=== PATIENT | female | born 1940 | race African-American/Black ===

== ENCOUNTER → 2016-04-10 | Outpatient (CLI) | payer MEDICARE, MEDICAID ==
--- NOTE | 2016-04-10 13:21 | WOMENS IMAGING REPORT ---
EXAM DESCRIPTION: 3D SCREENING MAMMO BILAT COMPLETED DATE/TIME: 04/10/2016 10:47 am REASON FOR STUDY: Z12.31, ROUTINE SCREENING MAMMO Z12.31 ENCNTR SCREEN MAMMOGRAM FOR MALIGNANT NEOP LASM OF LUIS MIGUEL COMPARISON: 08/20/2008 TECHNIQUE: Standard craniocaudal and mediolateral oblique views of each breast recorded using digita l acquisition and breast tomosynthesis. LIMITATIONS: None. FINDINGS: Findings present which are benign by mammographic criteria. No suspicious masses, calcifi cations or architectural distortion. Read with the assistance of CAD. .[facility] - R2 Cenova Version 1.3 .[facility] - R2 Cenova Version 1.3 .[facility] - R2 Cenova Version 2.4 .[facility] - R2 Cenova Version 2.4 .[facility] - R2 Voice Network Engineer Version 9.2 Benign mammographic findings may include one or more of the following: Smooth masses, popcorn/rim/co arse calcifications, asymmetries, post-procedure changes, and lesions with long-standing stability. BREAST DENSITY: b. There are scattered areas of fibroglandular density. BIRAD: 2 BENIGN FINDING(S) RECOMMENDATION: RECOMMENDATION: ROUTINE SCREENING COMMENT: PATIENT NOTIFIED BY LETTER The [employer] recommends an annual screening mammogram for women aged 40 years or over. Each patient will receive a reminder prior to the anniversary date of her mammogram. The [employer] (ACR) has developed recommendations for screening MRI of the breast s in certain patient populations, to be used in conjunction with mammography. Breast MRI surveillanc e may be appropriate for women with more than 20% lifetime risk of developing breast cancer as deter mined by genetic testing, significant family history of the disease, or history of mantle radiation f or Hodgkins Disease. ACR Practice Guidelines 2008. DBT Technology DBT is a type of tomographic mammography. With conventional mammography, overlapping breast tissue ma y make lesions difficult to detect, even with good compression. DBT uses an x-ray tube that rotates a round the breast, taking images at different angles. These images are then combined to create thin sl ices of the breast that the radiologist can view as a 3D reconstruction. The [employer] unit can perform full-field digital mammograms (2D imaging); or DBT (3D imaging); or both, in a combination mode that quickly performs both the mammogram and the tomosynthesis scan while the breast is still compressed. PQRS 6045F: Fluoroscopic imaging is not utilized for breast tomosynthesis. TECHNICAL DOCUMENTATION: FINDING NUMBER: (1) ASSESSMENT: (1) JOB ID: [id number] [employer]- All Rights Reserved
== END ==
LOC: WI 10:06
PROVIDERS: ATTEND Urology
DX: Z12.31 Encounter for screening mammogram for malignant neoplasm of breast (principal)
CPT/HCPCS: 77063; G0202; 77067

== ENCOUNTER → 2016-05-15 | Outpatient (CLI) | payer MEDICARE, MEDICAID ==
--- NOTE | 2016-05-16 11:48 | XCELERA REPORT ---
[address] [address] Lower Extremity Arterial Evaluation Name: GIULIA CUEVAS Age: 75 yrs Gender: Female : 1940 Patient Status: Outpatient Patient Location: Study Date: 05/15/2016 01:56 PM Procedure: A color flow and duplex scan of the lower extremity arteries was performed bilaterally with velocity and waveform anaylsis. Ankle brachial indicies performed. 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 Stenosis in the Femoral with Biphasic waveform. Monophasic in the Popliteal and infrageniculate vessels. Severely reduced velocity and waveform distally The ankle-brachial index is 0.5. 20-49 % stenosis is noted at the Femoral artery. With sequential disease. Left Side Arterial Evaluation Normal velocity, waveform and triphasic flow are present, from the Common Femoral artery to the Popliteal artery. then occlusion with monophasic reconstitution, reduced velocity, in the Anterior Tibial artery, no flow in the Posterior Tibial artery distally. The ankle-brachial index is 0.51. Occlusion as noted at the infrageniculate vessels. Interpretation Summary Severe hemodynamically significant lesions in the bilateral lower extremities, on duplex imaging, at rest. : HANH CORNEJO > Popeye Wright
== END ==
LOC: SP 12:45
PROVIDERS: ATTEND Student in an Organized Health Care Education/Training Program
DX: I82.403 Acute embolism and thrombosis of unspecified deep veins of lower extremity, bilateral (principal)
CPT/HCPCS: 93925; 93970

== ENCOUNTER 2016-10-11 12:16 | Emergency (ER) | payer MEDICARE, MEDICAID ==
--- NOTE | 2016-10-11 13:29 | ER Document Report ---
ED Cardiac - General Information source: Patient TRAVEL OUTSIDE OF THE [place] IN LAST 30 DAYS: No - HPI Patient complains to provider of: Chest pain Associated symptoms: Other - see above <JAX QUISPE - Last Filed: 10/11/16 16:40> <FERMÍN KITCHEN - Last Filed: 10/11/16 17:06> - General Chief Complaint: Irregular Pulse Stated Complaint: LOW HEART RATE Time Seen by Provider: 10/11/16 12:24 Notes: Patient is a 75 year old female who presents to the ED with complaints of progressively worsening chest pain over the coarse of the past 5-6 weeks. Patient also complains of feeling weak and dizzy for a couple days. Patient was at Dr. Jones office for a routine follow up and was sent to the ED for evaluation due to a changed EKG. Patient had a heart catheterization done by Dr. Garcia 2 months ago in [place] and was told she has a blockage. Patient states there is nothing specific that brings her chest pain on and states that recently when she has the chest pain she feels like she is going to faint. Patient denies a headache. Patient has not missed any doses of her medication recently. (JAX QUISPE) - Related Data Allergies/Adverse Reactions: cyclobenzaprine [From Flexeril] Allergy (Verified 10/11/16 12:50) metaxalone [Metaxalone] Allergy (Verified 10/11/16 12:50) muscle relaxers Allergy (Uncoded 10/11/16 12:50) Past Medical History - General Information source: Patient - Social History Smoking Status: Never Smoker Cigarette use (# per day): No Chew tobacco use (# tins/day): No Smoking Education Provided: No Frequency of alcohol use: None Family History: Reviewed & Not Pertinent - Past Medical History Cardiac Medical History: Reports: Hx Hypercholesterolemia, Hx Hypertension Pulmonary Medical History: Denies: Hx Tuberculosis Endocrine Medical History: Reports: Hx Hypothyroidism Past Surgical History: Reports: Hx Hysterectomy, Hx Thyroid Surgery. Denies: Hx Pacemaker - Immunizations Hx Diphtheria, Pertussis, Tetanus Vaccination: No <JAX QUISPE - Last Filed: 10/11/16 16:40> Review of Systems - Review of Systems Constitutional: See HPI, Weakness EENT: No symptoms reported Cardiovascular: See HPI, Chest pain, Dizziness, Lightheaded Respiratory: No symptoms reported Gastrointestinal: No symptoms reported Genitourinary: No symptoms reported Female Genitourinary: No symptoms reported Musculoskeletal: No symptoms reported Skin: No symptoms reported Hematologic/Lymphatic: No symptoms reported Neurological/Psychological: See HPI, Weakness. denies: Headaches <JAX QUISPE - Last Filed: 10/11/16 16:40> Physical Exam <JOSE ENRIQUE,JAX - Last Filed: 10/11/16 16:40> <FERMÍN KITCHEN - Last Filed: 10/11/16 17:06> - Vital signs Vitals: Pulse Resp BP Pulse Ox 42 L 16 219/84 H 100 10/11/16 12:39 10/11/16 12:39 10/11/16 12:39 10/11/16 12:39 - Notes Notes: GENERAL: Alert, interacts well. No acute distress. HEAD: Normocephalic, atraumatic. EYES: Pupils equal, round, and reactive to light. Extraocular movements intact. ENT: Oral mucosa moist, tongue midline. NECK: Full range of motion. Supple. Trachea midline. LUNGS: Clear to auscultation bilaterally, no wheezes, rales, or rhonchi. No respiratory distress. HEART: Regular. Bradycardic. No murmurs, gallops, or rubs. ABDOMEN: Soft, non-tender. Non-distended. Bowel sounds present in all 4 quadrants. EXTREMITIES: Moves all 4 extremities spontaneously. No edema, radial pulses 2/4 bilaterally. No cyanosis. NEUROLOGICAL: Alert and oriented x3. Normal speech. PSYCH: Normal affect, normal mood. SKIN: Warm, dry, normal turgor. No rashes or lesions noted (JAX QUISPE) Course - Laboratory Result Diagrams: 10/11/16 13:16 10/11/16 13:16 - Consults Dr. Johnson Time consulted: 14:00 Dr. Griffin Time consulted: 16:37 <JAX QUISPE - Last Filed: 10/11/16 16:40> - Laboratory Result Diagrams: 10/11/16 13:16 10/11/16 13:16 <FERMÍN KITCHEN - Last Filed: 10/11/16 17:06> - Re-evaluation Re-evalutation: 08/09/17 17:02 CBC unremarkable, CMP shows elevated chloride at 132 which is a negative anion gap of 17, I feel this is likely spurious result, chemistries otherwise unremarkable, cardiac enzymes negative, EKG shows junctional rhythm, I was initially concerned for the possibility of a third-degree AV block however I consulted with Dr. Caldera regarding this EKG and he feels it is a junctional rhythm with variable foci. Chest x-ray shows no acute process. Patient is quite hypertensive on arrival, blood pressure is 219/84 and her heart rate is 42, again discussed with this with Dr. Caldera who feels this is likely the carotid reflex kicking in and causing the bradycardia, this was proven by given hydralazine 20 mg IV when her blood pressure normalized to 136/ 72 her heart rate normalized to 67, and as the hydralazine unit wore off the patient slowly became more bradycardic again. After consulting with Dr. Griffin for possible admission to manage the blood pressure and the heart rate he recommended outpatient management and treating the patient with Norvasc 5 mg by mouth daily and outpatient follow-up with her primary care physician. Given the patient's recent negative cardiac catheterization I have very low suspicion for coronary artery disease as an etiology for chest pain. I recommended the patient that she also follow-up with her primary care physician and possibly gastroenterology as an outpatient. (FERMÍN KITCHEN) - Vital Signs Vital signs: Temp Pulse Resp BP Pulse Ox 97.7 F 42 L 15 178/70 H 100 10/11/16 12:42 10/11/16 12:39 10/11/16 16:01 10/11/16 16:01 10/11/16 16:01 - Laboratory Laboratory results interpreted by me: 10/11/16 13:16 Chloride 132 H Anion Gap -17 L AST 63 H - EKG Interpretation by Me Additional EKG results interpreted by me: 10/11/16 17:02 EKG shows junctional rhythm at a rate of 46, first-degree AV block, and significant ST segment elevation in V2, no ST segment depressions, isolated T- wave inversion in aVL per my interpretation. (FERMÍN KITCHEN) - Consults Dr. Johnson Reason for consultation: 10/11/16 14:00 Consulted on patients EKG (JAX QUISPE) Dr. Griffin Reason for consultation: 10/11/16 16:37 Discussed patient and admitting versus discharging home with patient on Norvasc 5mg per day. He agrees that the patient can be discharged home. He agrees this does not need admission as I have already proven I can improve symptoms with medication. (JAX QUISPE) Critical Care Note - Critical Care Note Total time excluding time spent on procedures (mins): 35 <FERMÍN KITCHEN - Last Filed: 10/11/16 17:06> Discharge <JAX QUISPE - Last Filed: 10/11/16 16:40> <FERMÍN KITCHEN - Last Filed: 10/11/16 17:06> - Discharge Clinical Impression: Hypertensive urgency, Bradycardia with 41-50 beats per minute Condition: Stable Disposition: HOME, SELF-CARE Additional Instructions: Today we found no sign of heart attack. Your EKG shows a junctional rhythm. This slow junctional rhythm is likely a reaction to your elevated blood pressure that you had on arrival, your systolic blood pressure was 219/84 and to protect your brain your heart rate slowed. When we gave the hydralazine to lower your blood pressure your heart rate did increase. We are now going to treat her elevated blood pressure as an outpatient with Norvasc 5 mg daily. Please follow-up with Dr. Correa within the next week to have your blood pressure rechecked. There is no sign of heart attack on your blood work or your EKG today, given your negative recent cardiac catheterization I feel it is unlikely heart disease explains her chest pain, please follow-up with Dr. Correa as an outpatient. Prescriptions: Amlodipine Besylate [Norvasc 5 mg Tablet] 5 mg PO DAILY #30 tablet Referrals: HANH CORREA DO [Primary Care Provider] - Follow up in 3-5 days Scribe Attestation: 10/11/16 17:06 I personally performed the services described in the documentation, reviewed and edited the documentation which was dictated to the scribe in my presence, and it accurately records my words and actions. (FERMÍN KITCHEN) Scribe Documentation - Scribe Written by Erin:: erin Mcdaniels, 10/11/2016, 1350 acting as scribe for :: Rich <JAX QUISPE - Last Filed: 10/11/16 16:40>
[2016-10-11 13:30] LABS: ABSOLUTE LYMPHOCYTES (AUTO) 1.6 10^3/uL (0.5-4.7); ABSOLUTE MONOCYTES (AUTO) 0.3 10^3/uL (0.1-1.4); ABSOLUTE NEUT (AUTO) 2.7 10^3/uL (1.7-8.2); BASOPHILS % (AUTO) 0.7 % (0-2); EOSINOPHILS % (AUTO) 0.1 % (0-6); HEMATOCRIT 39.5 % (36.0-47.0); HEMOGLOBIN 13.3 g/dL (12.0-15.5); HGB HCT DIFFERENCE 0.4; LYMPHOCYTES % (AUTO) 34.3 % (13-45); MEAN CORPUSCULAR HEMOGLOBIN 27.6 pg (27.0-33.4); MEAN CORPUSCULAR HGB CONC 33.6 g/dL (32.0-36.0); MEAN CORPUSCULAR VOLUME 82 fl (80-97); MONOCYTES % (AUTO) 6.7 % (3-13); RED CELL DISTRIBUTION WIDTH 13.2 % (11.5-14.0); SEGMENTED NEUTROPHILS % (AUTO) 58.2 % (42-78); WHITE BLOOD COUNT 4.7 10^3/uL (4.0-10.5)
[2016-10-11] MEDS ORDERED: HYDRALAZINE HCL INJ/PF 20 MG/1 ML SDV IV ONE (14:01)
--- NOTE | 2016-10-11 14:13 | RADIOLOGY REPORT (SQ) ---
EXAM DESCRIPTION: CHEST SINGLE VIEW COMPLETED DATE/TIME: 10/11/2016 2:01 pm REASON FOR STUDY: bradycardia COMPARISON: 07/30/2014 EXAM PARAMETERS: NUMBER OF VIEWS: One view. TECHNIQUE: Single frontal radiographic view of the chest acquired. RADIATION DOSE: NA LIMITATIONS: None. FINDINGS: LUNGS AND PLEURA: No opacities, masses or pneumothorax. No pleural effusion. MEDIASTINUM AND HILAR STRUCTURES: No masses. Contour normal. HEART AND VASCULAR STRUCTURES: Cardiomegaly without CHF. BONES: No acute findings. HARDWARE: None in the chest. OTHER: No other significant finding. IMPRESSION: Cardiomegaly without CHF. TECHNICAL DOCUMENTATION: JOB ID: [id number]
[2016-10-11 14:21] LABS: ALANINE AMINOTRANSFERASE 47 U/L (9-52); ALBUMIN 4.2 g/dL (3.5-5.0); ALKALINE PHOSPHATASE 67 U/L (38-126); ASPARTATE AMINO TRANSFERASE 63 U/L (14-36); BILIRUBIN,DIRECT 0.4 mg/dL (0.0-0.4); BILIRUBIN,TOTAL 0.7 mg/dL (0.2-1.3); BLOOD UREA NITROGEN 13 mg/dL (7-20); CALCIUM 8.8 mg/dL (8.4-10.2); CHLORIDE 132 mmol/L (98-107); CREATINE KINASE 94 U/L (30-135); CREATININE RESULT 0.75 mg/dL (0.52-1.25); GLUCOSE 85 mg/dL (75-110); MAGNESIUM 1.9 mg/dL (1.6-2.3); POTASSIUM 4.3 mmol/L (3.6-5.0)
[2016-10-11 14:31] LABS: CARBON DIOXIDE 27 mmol/L (22-30); SODIUM 142.2 mmol/L (137-145)
[2016-10-11 14:33] LABS: CREATINE KINASE MB 1.21 ng/mL (<4.55)
[2016-10-11 14:37] LABS: ANION GAP -17 (5-19); TROPONIN I < 0.012 ng/mL
[2016-10-11] MEDS ORDERED: AMLODIPINE BESYLATE 5 MG TABLET PO ONE (16:39)
[2016-10-11 17:25] VITALS: BP 194/68
--- NOTE | 2016-10-12 13:05 | EKG REPORT ---
SEVERITY:- ABNORMAL ECG - SLOW SINUS ARRHYTHMIA, RATE 37-48 ANTERIOR INFARCT, OLD : Confirmed by: Ruthie Portillo 12-Oct-2016 13:04:57
== END 2016-10-11 17:25 | disposition home or self-care (01) ==
LOC: ER 12:16
DX: I16.0 Hypertensive urgency (principal); I10 Essential (primary) hypertension; I44.0 Atrioventricular block, first degree; R07.9 Chest pain, unspecified; R00.1 Bradycardia, unspecified; R42 Dizziness and giddiness; R53.1 Weakness; Z88.8 Allergy status to other drugs, medicaments and biological substances
CPT/HCPCS: 93005; 99291; 96374; 36415; 82553; 82550; 83735; 85025; 80053; 84484; 71010; 93010; J0360; A9270

== ENCOUNTER → 2018-06-07 | Day surgery (SDC) | payer MEDICARE, MEDICAID ==
[~2018-06-07] MED LIST: BUPIVACAINE HCL 0.5 % INJ/PF 30 ML SDV ONE; LIDOCAINE 1% INJ-PF (10 MG/ML) 30 ML SDV ONE; METHYLPREDNISOLONE ACETATE INJ 80 MG/1 ML VIAL ONE
--- NOTE | 2018-06-07 13:49 | RADIOLOGY REPORT (SQ) ---
EXAM DESCRIPTION: INJECT/ASPIR HIP/SHLDR/KNEE; FLUORO/NEEDLE PLACEMENT COMPLETED DATE/TIME: 06/07/2018 1:33 pm REASON FOR STUDY: M16.11 UNILATERAL PRIMARY OSTEOARTHRITIS, RIGHT HIP M16.11 UNILATERAL PRIMARY OST EOARTHRITIS, RIGHT HIP COMPARISON: None. FLUOROSCOPY TIME: 20 seconds 1 digital radiographic images saved to PACS. LIMITATIONS: None. PROCEDURE: SITE OF INJECTION: Right hip joint space LOCALIZING CONTRAST TYPE AND DOSE: 1 mL of Omnipaque 300 MEDICATION TYPE AND DOSE: 80 mg of Depo-Medrol, 5 mL of 0.5% bupivacaine Using local anesthesia and sterile technique with fluoroscopic guidance, the needle was advanced into the joint. Iodinated contrast was injected to verify intraarticular placement. This was followed by therapeutic injection of the indicated medications. The needle was removed. There were no immediat e complications. Preprocedure pain level: 2/5. Postprocedure pain level: 1/5. IMPRESSION: THERAPEUTIC INJECTION OF THE RIGHT HIP JOINT ABOVE. COMMENT: Patient medication list reviewed: Yes- Quality ID# [id number]:Eligible professional attests to doc umenting in the medical record they obtained, updated, or reviewed the patient's current medications. . Quality ID 145: Final reports for procedures using fluoroscopy that document radiation exposure jany loco, or exposure time and number of fluorographic images (if radiation exposure indices are not avail able) TECHNICAL DOCUMENTATION: JOB ID: [id number] [employer]- All Rights Reserved Reading location - IP/workstation name: [email or web address]
== END ==
LOC: RAD 12:41
PROVIDERS: ATTEND Orthopaedic Surgery
DX: M16.11 Unilateral primary osteoarthritis, right hip (principal)
CPT/HCPCS: 20610; 77002; J3490 ×2; J1040

== ENCOUNTER 2018-07-22 18:12 | Emergency (ER) | payer MEDICARE, MEDICAID ==
--- NOTE | 2018-07-22 19:19 | RADIOLOGY REPORT (SQ) ---
EXAM DESCRIPTION: CHEST SINGLE VIEW COMPLETED DATE/TIME: 07/22/2018 6:42 pm REASON FOR STUDY: sob COMPARISON: 07/30/2014 EXAM PARAMETERS: NUMBER OF VIEWS: One view. TECHNIQUE: Single frontal radiographic view of the chest acquired. RADIATION DOSE: NA LIMITATIONS: None. FINDINGS: LUNGS AND PLEURA: No opacities, masses or pneumothorax. No pleural effusion. MEDIASTINUM AND HILAR STRUCTURES: No masses. Contour normal. HEART AND VASCULAR STRUCTURES: Borderline heart size. No theodore pulmonary edema. BONES: No acute findings. HARDWARE: Pacemaker. OTHER: No other significant finding. IMPRESSION: Borderline cardiomegaly without pulmonary edema. TECHNICAL DOCUMENTATION: JOB ID: [id number] [employer]- All Rights Reserved Reading location - IP/workstation name: [email or web address]
--- NOTE | 2018-07-22 19:19 | ER Document Report ---
ED General - General Chief Complaint: Shortness Of Breath Stated Complaint: DIFFICULTY BREATHING Time Seen by Provider: 07/22/18 18:29 Primary Care Provider: HANH CORNEJO DO [Primary Care Provider] - Follow up as needed Notes: Patient is a 78-year-old female with past medical history of essential hypertension, bradycardia status post pacemaker placement, presents complaining with 3 to 4 weeks of elevated heart rate, shortness of breath and chest pain. Patient is a very difficult historian, unable to tell me exact details of her symptoms or why she decided come to the hospital today by EMS versus over the past several weeks. She reports that her chest discomfort is a cramping, aching, mild discomfort over the left side of her chest that has been on and off over the last several weeks. She notes that this is often associated with shortness of breath. She states her symptoms seem to be worsened by exertion she has not contacted her cryptologist or primary doctor regarding today's concerns. She does state that she took her heart rate today noted to be high prompting her to come to the emergency department for further assessment. She denies a history of similar symptoms in the past. She states she is uncertain whether or not she has a history of coronary artery disease only that she has been told that she has a slow heart rate and has required a pacemaker in the past. TRAVEL OUTSIDE OF THE [place] IN LAST 30 DAYS: No - Related Data Allergies/Adverse Reactions: cyclobenzaprine [From Flexeril] Allergy (Verified 10/11/16 12:50) metaxalone [Metaxalone] Allergy (Verified 10/11/16 12:50) muscle relaxers Allergy (Uncoded 10/11/16 12:50) Past Medical History - General Information source: Patient - Social History Smoking Status: Never Smoker Frequency of alcohol use: None Drug Abuse: None Lives with: Family Family History: Reviewed & Not Pertinent Patient has suicidal ideation: No Patient has homicidal ideation: No - Past Medical History Cardiac Medical History: Reports: Hx Hypercholesterolemia, Hx Hypertension Pulmonary Medical History: Denies: Hx Tuberculosis Endocrine Medical History: Reports: Hx Hypothyroidism Renal/ Medical History: Denies: Hx Peritoneal Dialysis Past Surgical History: Reports: Hx Hysterectomy, Hx Thyroid Surgery. Denies: Hx Pacemaker - Immunizations Hx Diphtheria, Pertussis, Tetanus Vaccination: No Review of Systems - Review of Systems Notes: Constitutional: Negative for fever. HENT: Negative for sore throat. Eyes: Negative for visual changes. Cardiovascular: Positive for chest pain. Respiratory: Positive for shortness of breath. Gastrointestinal: Negative for abdominal pain, vomiting or diarrhea. Genitourinary: Negative for dysuria. Musculoskeletal: Negative for back pain. Skin: Negative for rash. Neurological: Negative for headaches, weakness or numbness. 10 point ROS negative except as marked above and in HPI. Physical Exam - Vital signs Vitals: Temp Resp BP Pulse Ox 98 F 19 164/110 H 100 07/22/18 18:23 07/22/18 18:23 07/22/18 18:23 07/22/18 18:23 Interpretation: Hypertensive Notes: PHYSICAL EXAMINATION: GENERAL: Elderly somewhat frail female in no acute distress HEAD: Atraumatic, normocephalic. EYES: Pupils equal round and reactive to light, extraocular movements intact, sclera anicteric, conjunctiva are normal. ENT: nares patent, oropharynx clear without exudates. Moderately dry mucous membranes. NECK: Normal range of motion, supple without lymphadenopathy LUNGS: Breath sounds clear to auscultation bilaterally and equal. No wheezes rales or rhonchi. HEART: Regular tachycardia without murmurs ABDOMEN: Soft, nontender, normoactive bowel sounds. No guarding, no rebound. No masses appreciated. EXTREMITIES: Normal range of motion, no pitting or edema. No cyanosis. NEUROLOGICAL: No focal neurological deficits. Moves all extremities spontaneously and on command. PSYCH: Normal mood, normal affect. SKIN: Warm, Dry, normal turgor, no rashes or lesions noted. Course - Re-evaluation Re-evalutation: 07/22/18 19:17 Patient presents with complaints of several weeks of intermittent chest discomfort, feeling that her heart rate is going fast and that she is intermittently short of breath. The patient is a very poor historian, unable to tell me exactly what she came to the emergency department today versus over the past several days. She states that she has not spoken to her cryptologist nor her primary care doctor regarding her concerns. She has a history of bradycardia warranting a pacemaker placement but notably here she has consistent sinus tachycardia with rates in the upper 1 teens to 120s. She denies pl euritic pain, anticoagulated on Xarelto although a pulmonary embolus would be on the differential. Additional considerations would include ACS, less likely dissection given duration of symptoms. Will proceed with CTA of the chest, labs, and reassess the patient. 07/23/18 00:59 Patient's work-up has been effectively unremarkable. VQ scan normal. Cardiac markers unremarkable. I did discuss with the cryptologist on-call Dr. Hair given the patient's ongoing sinus tachycardia. He advised metoprolol 5 mg IV. This was administered and the patient did have significant improvement in her sensation of palpitations and shortness of breath now stating she feels much better, eating and stating that she feels comfortable going home with outpatient follow-up. I have given her dose oral metoprolol and have provided her prescription for metoprolol at home. At this time will discharge with return precautions and follow-up recommendations. Verbal discharge instructions given a the bedside and opportunity for questions given. Medication warnings reviewed. Patient is in agreement with this plan and has verbalized understanding of return precautions and the need for cardiology follow-up in the next 24-72 hours. - Vital Signs Vital signs: Temp Pulse Resp BP Pulse Ox 98 F 19 164/110 H 100 07/22/18 18:23 07/22/18 18:23 07/22/18 18:23 07/22/18 18:23 - Laboratory Result Diagrams: 07/22/18 20:10 07/22/18 20:10 Laboratory results interpreted by me: 07/22/18 07/22/18 07/22/18 20:10 20:10 20:10 MCH 26.6 L RDW 15.0 H Chloride 134 H Anion Gap -22 L AST 80 H ALT 81 H Urine Protein 30 H Urine Blood SMALL H - Diagnostic Test Radiology reviewed: Image reviewed, Reports reviewed Discharge - Discharge Clinical Impression: Sinus tachycardia, Shortness of breath, Palpitations Chest pain Qualifiers: Chest pain type: unspecified Qualified Code(s): R07.9 - Chest pain, unspecified Condition: Stable Disposition: HOME, SELF-CARE Instructions: Beta Blockers ([facility]) Additional Instructions: Your symptoms appear to be related to your heart rate being so elevated. I discussed your case with your cryptologist on-call and your symptoms have improved after we gave the medication that he advised you receive called bobby joiner. You are being sent home with a prescription for the same. Please follow- up with a cryptologist larsorrow either your primary cryptologist or Dr. Hair. Return if you have worsening symptoms including shortness of breath, palpitations, chest pain, or pass out. Prescriptions: Metoprolol Tartrate [Lopressor 25 mg Tablet] 12.5 mg PO Q12 #30 tab Referrals: HANH CORNEJO DO [Primary Care Provider] - Follow up as needed ORESTES HAIR MD [ACTIVE STAFF] - Follow up tomorrow
[2018-07-22 20:32] LABS: ABSOLUTE LYMPHOCYTES (AUTO) 1.5 10^3/uL (0.5-4.7); ABSOLUTE MONOCYTES (AUTO) 0.4 10^3/uL (0.1-1.4); ABSOLUTE NEUT (AUTO) 2.7 10^3/uL (1.7-8.2); BASOPHILS % (AUTO) 0.5 % (0-2); HEMATOCRIT 40.5 % (36.0-47.0); HEMOGLOBIN 13.2 g/dL (12.0-15.5); LYMPHOCYTES % (AUTO) 32.7 % (13-45); MEAN CORPUSCULAR HEMOGLOBIN 26.6 pg (27.0-33.4); MEAN CORPUSCULAR HGB CONC 32.6 g/dL (32.0-36.0); MEAN CORPUSCULAR VOLUME 82 fl (80-97); MONOCYTES % (AUTO) 7.8 % (3-13); PLATELET COUNT 214 10^3/uL (150-450); RED BLOOD COUNT 4.96 10^6/uL (3.72-5.28); TOTAL CELLS COUNTED % (AUTO) 100 %; WHITE BLOOD COUNT 4.5 10^3/uL (4.0-10.5)
[2018-07-22 20:40] LABS: APPEARANCE,URINE CLEAR; BILIRUBIN,URINE NEGATIVE (NEGATIVE); COLOR,URINE STRAW; GLUCOSE, URINE NEGATIVE (NEGATIVE); KETONES,URINE NEGATIVE (NEGATIVE); LEUKOCYTE ESTERASE,URINE NEGATIVE (NEGATIVE); NITRITE,URINE NEGATIVE (NEGATIVE); PROTEIN,URINE 30 mg/dL (NEGATIVE); URINE SPECIFIC GRAVITY 1.005; UROBILINOGEN,URINE NEGATIVE mg/dL (<2.0)
[2018-07-22 20:53] LABS: ALANINE AMINOTRANSFERASE 81 U/L (9-52); ALBUMIN 4.3 g/dL (3.5-5.0); ALKALINE PHOSPHATASE 72 U/L (38-126); ASPARTATE AMINO TRANSFERASE 80 U/L (14-36); BILIRUBIN,DIRECT 0.2 mg/dL (0.0-0.4); BILIRUBIN,TOTAL 0.4 mg/dL (0.2-1.3); BLOOD UREA NITROGEN 14 mg/dL (7-20); CALCIUM 9.2 mg/dL (8.4-10.2); CARBON DIOXIDE 29 mmol/L (22-30); CHLORIDE 134 mmol/L (98-107); GLUCOSE 96 mg/dL (75-110); POTASSIUM 4.4 mmol/L (3.6-5.0); SODIUM 140.7 mmol/L (137-145); TOTAL PROTEIN 7.8 g/dL (6.3-8.2)
[2018-07-22 21:02] LABS: NT PRO BNP 227 pg/mL (<450)
[2018-07-22 21:03] LABS: ANION GAP -22 (5-19)
[2018-07-22 21:06] LABS: TROPONIN I < 0.012 ng/mL
--- NOTE | 2018-07-22 22:47 | RADIOLOGY REPORT (SQ) ---
EXAM DESCRIPTION: NM LUNG VENTILATION PERFUSION COMPLETED DATE/TME: 07/22/2018 20:16 CLINICAL HISTORY: 78 years, Female, SOB, HTN, INCREASED HEART RATE COMPARISON: Chest radiograph performed earlier the same day RADIONUCLIDE AND DOSE: 30.5 mCi technetium 99m DTPA was administered by inhalation. 5.34 mCi mCi Tc-99m MAA was administered IV. ADDITIONAL DRUGS AND DOSES: None TECHNIQUE: Standard ventilation images were acquired. Standard perfusion images were acquired. LIMITATIONS: None. FINDINGS: The comparison chest radiograph performed on the same day demonstrates no focal pulmonary opacities or pleural fluid. The ventilation images show a uniform distribution of activity throughout both lungs. The perfusion images show a physiologic distribution of pulmonary perfusion. IMPRESSION: Normal ventilation/perfusion images. Overall, there is no definitive evidence of pulmonary embolism. copyright 2010 [employer]- All Rights Reserved
[2018-07-22] MEDS ORDERED: METOPROLOL TARTRATE PF/INJ 5 MG/5 ML SDV IV ONE (23:49)
[2018-07-23] MEDS ORDERED: METOPROLOL TARTRATE 25 MG TABLET PO ONE (00:56)
[2018-07-23 02:27] VITALS: BP 148/64
--- NOTE | 2018-07-24 10:04 | EKG REPORT ---
SEVERITY:- ABNORMAL ECG - SINUS TACHYCARDIA ANTERIOR INFARCT, AGE INDETERMINATE : Confirmed by: Ruthie Portillo 24-Jul-2018 10:03:57
== END 2018-07-23 02:30 | disposition home or self-care (01) ==
LOC: EDBD → ER 18:12
DX: R07.9 Chest pain, unspecified (principal); R00.0 Tachycardia, unspecified; R06.02 Shortness of breath; R00.2 Palpitations; R00.1 Bradycardia, unspecified; I10 Essential (primary) hypertension
CPT/HCPCS: 93005; 99285; 96374; 36415; 85025; 80053; 81001; 84484; 83880; 71045; 78582; 93010; A9540; A9567; J3490; Q9969